=== PATIENT | female | born 1970 | race Asian ===

== ENCOUNTER 2024-03-29 08:11 | Emergency (ER) | payer OTHER ==
[~2024-03-29] VITALS: Ht 162.6 cm; Wt 56.7 kg
[2024-03-29 08:15] VITALS: BP_SYST 108; PULSE 82; RESP 18; TEMP 98.3; O2SAT 98
[2024-03-29] MEDS ORDERED: CETI1TAB2 PO (09:15)
[2024-03-29 10:09] VITALS: BP_SYST 108; PULSE 82; RESP 18; TEMP 98.3; O2SAT 98
== END 2024-03-29 10:08 | disposition home or self-care (01) ==
LOC: SED 08:11
DX: H91.8X1 Other specified hearing loss, right ear (principal); Z79.899 Other long term (current) drug therapy
CPT/HCPCS: 99282